=== PATIENT | male | born 1990 | race Caucasian/White ===

== ENCOUNTER 2017-07-18 16:03 | Emergency (ER) | payer MEDICAID ==
[2017-07-18 16:16] VITALS: BP 118/86; PULSE 84; RESP 18; TEMP 98.2; O2SAT 96
--- NOTE | 2017-07-18 16:59 | EDPHY ---
H & P Time Seen by Provider: 07/18/17 16:52 HPI/ROS: CHIEF COMPLAINT: "I'm really anxious" HISTORY OF PRESENT ILLNESS: 26 year male with history of anxiety, as previously been on anxiolytics, recently released from long term, has been off of all medications for some time, complaining of increased anxiety. He is living out of his car,. No suicidal or homicidal ideation. PRIMARY CARE PROVIDER: [facility] REVIEW OF SYSTEMS: A ten point review of systems was performed and is negative with the exception of the items mentioned in the HPI PAST MEDICAL & SURGICAL HISTORY: Anxiety SOCIAL HISTORY: No alcohol use PHYSICAL EXAM (Prior to examination, patient consented to physical exam, hands were washed and my usual and customary physical exam procedures followed) 1) GENERAL: Well-developed, well-nourished, alert and oriented. Appears anxious. 2) HEAD: Normocephalic, atraumatic 3) HEENT: Pupils equal, round, reactive to light bilaterally. Sclera anicteric. 4) NECK: Full range of motion, no meningeal signs. 5) LUNGS: Clear auscultation bilaterally, no wheezes, no rhonchi, no retractions. 6) HEART: Regular rate and rhythm, no murmur, no heave, no gallop. 7) ABDOMEN: No guarding, no rebound, no focal tenderness, 8) MUSCULOSKELETAL: No peripheral edema or discoloration. 9) BACK: No visual or palpable abnormality. 10) SKIN: No rash, no petechiae. 11) Psychiatric: Patient is oriented X 3, there is no agitation. DIFFERENTIAL DIAGNOSIS: In no particular include but limited to anxiety, suicidal ideation, homicidal ideation, depression. Smoking Status: Former smoker Constitutional: Initial Vital Signs Temperature (C) 36.8 C 07/18/17 16:13 Heart Rate 84 07/18/17 16:13 Respiratory Rate 18 07/18/17 16:13 Blood Pressure 118/86 H 07/18/17 16:13 O2 Sat (%) 96 07/18/17 16:13 O2 Delivery Mode Room Air Allergies/Adverse Reactions: No Known Allergies Allergy (Verified 07/18/17 16:13) Home Medications: Medication Instructions Recorded ALPRAZolam [Xanax 1 MG (*)] 1 mg PO BID PRN #5 tab 07/18/17 MDM/Departure - [facility] ED Course/Re-evaluation: Patient appears anxious. Doubt PE. Denies suicidal or homicidal ideation. Today is Friday night. I have had a lengthy discussion with him regarding [facility] and the [facility] health walk-in clinic. Agreed to give him a small prescription for Xanax as needed for breakthrough anxiety. He feels comfortable with this plan. He does not meet criteria for an M1 hold. Care of patient under supervision of secondary supervising physician Dr Moffett . - Depart Disposition: Home, Routine, Self-Care Clinical Impression: Anxiety Condition: Good Instructions: Anxiety (ED) Additional Instructions: Return to the ER if you develop chest pain, shortness of breath, thoughts of hurting yourself or others or any other symptoms that concern you Prescriptions: ALPRAZolam [Xanax 1 MG (*)] 1 mg PO BID PRN #5 tab PRN Reason: Anxiety Referrals: Niraj Bourgeois MD [Primary Care Provider] [facility] - As per Instructions
== END 2017-07-18 17:10 | disposition home or self-care (01) ==
DX: F41.9 Anxiety disorder, unspecified (principal); Z87.891 Personal history of nicotine dependence